=== PATIENT | female | born 1990 | race Caucasian/White ===

== ENCOUNTER 2019-05-07 01:58 | Emergency (ER) | payer OTHER, MEDICAID ==
[~2019-05-07] VITALS: Ht 167.6 cm; Wt 66.2 kg
[~2019-05-07 01:58] MED LIST: CITA10TA11 PO; CLON1TAB11 PO; LAMO25TA6 PO; TRAZ-343 PO
[2019-05-07 02:05] VITALS: BP 110/74
--- NOTE | 2019-05-07 02:10 | NUR ---
PT AMBULATED TO BED #4
[2019-05-07] MEDS ORDERED: NACL 0.9% 1,000 ML IV ONE (02:20)
[2019-05-07] MEDS ORDERED: KETOROLAC 15 MG/ML VIAL IVP ONE (02:20)
[2019-05-07] MEDS ORDERED: ONDANSETRON 4 MG/2 ML VIAL IVP ONE (02:20)
[2019-05-07 02:30] LABS: APPEARANCE,URINE CLEAR (CLEAR); BILIRUBIN,URINE NEGATIVE (NEGATIVE); BLOOD, URINE NEGATIVE (NEGATIVE); COLOR,URINE YELLOW (YELLOW); LEUKOCYTE ESTERASE ,URINE NEGATIVE (NEGATIVE); NITRITE, URINE NEGATIVE (NEGATIVE); PH,URINE 6.5 (5.0-9.0); UGLUCOSE NEGATIVE (NEGATIVE)
[2019-05-07 02:32] LABS: BASOPHILS % (AUTO) 0.8 % (0.0-2.0); EOSINOPHILS # (AUTO) 0.2 K/uL (0-0.4); EOSINOPHILS % (AUTO) 3.6 % (0.0-4.0); HEMATOCRIT 34.2 % (36-48); HEMOGLOBIN 11.3 g/dL (12.0-16.0); LYMPHOCYTES # (AUTO) 1.8 K/uL (2.5-16.5); LYMPHOCYTES % (AUTO) 34.6 % (20.5-51.1); MEAN CORPUSCULAR HEMOGLOBIN 29 pg (27-31); MEAN CORPUSCULAR HGB CONC 33 g/dL (33-37); MEAN CORPUSCULAR VOLUME 87.8 fL (80-94); MONOCYTES # (AUTO) 0.4 K/uL (0.8-1.0); MONOCYTES % (AUTO) 8.2 % (1.7-9.3); NEUTROPHILS # (AUTO) 2.8 K/uL (1.8-7.7); NEUTROPHILS % (AUTO) 52.8 % (42.2-75.2); PLATELET COUNT (AUTO) 254 K/uL (140-450); RED BLOOD CELL COUNT(AUTO) 3.89 MIL/uL (4.20-5.40); RED CELL DISTRIBUTION WIDTH 14.3 % (11.6-13.7); WHITE BLOOD COUNT (AUTO) 5.2 K/uL (4.8-10.8)
--- NOTE | 2019-05-07 02:43 | NUR ---
29 Y/O FEMALE C/O EPIGASTRIC ABD PAIN, N,V,D, NIGHT SWEATS X 2 WEEKS. RATES PAIN 8/10 AND DESCRIBES IT SHARP FEELING. DENIES ANY DYSURIA OR BLOOD IN THE STOOL OR URINE. N,V(3X),D(5-6X) PRESENT. ABD IS SOFT, FLAT, ACTIVE BS, TENDERNESS ON EPIGASTRIC REGION. CHANGE OF APPETITE PRESENT. VSS. STEADY GAIT. A 7 O X4. LUNG OSUNDS CLEAR ALL THORUGHOUT. NO DISTRESS NOTED. PRODUCTIVE COUGH PRESENT. ALLERGIES: AMOXICILLIN, PCN, AND KEFLEX. PMH: ANXIETY, BIPOLAR, BULIMIA (AGE 18), ELECTROSHOCK THERAPY EVERY 2 MONTHS FOR BIPOLAR.
[2019-05-07 02:46] LABS: ALBUMIN 3.8 g/dL (3.4-5.0); ANION GAP 12.6 (8-16); CARBON DIOXIDE 25.4 mmol/L (21-32); CREATININE 0.9 mg/dL (0.6-1.3); TOTAL BILIRUBIN 0.2 mg/dL (0.0-1.0)
[2019-05-07 04:16] VITALS: BP 110/74
== END 2019-05-07 04:16 | disposition home or self-care (01) ==
LOC: MED 01:58
DX: R19.7 Diarrhea, unspecified (principal); G89.29 Other chronic pain; R10.9 Unspecified abdominal pain; R11.2 Nausea with vomiting, unspecified; F41.9 Anxiety disorder, unspecified; Z79.899 Other long term (current) drug therapy; Z88.0 Allergy status to penicillin; Z88.1 Allergy status to other antibiotic agents
CPT/HCPCS: 36415; 80053; 81003; 82150; 83690; 84703; 85025; 87804; 96361; 96374; 96375; 99283; J1885; J2405

== ENCOUNTER 2021-02-05 00:40 | Emergency (ER) | payer OTHER, MEDICAID ==
[~2021-02-05] VITALS: Ht 162.6 cm; Wt 59.0 kg
[2021-02-05 00:56] VITALS: BP 145/92
--- NOTE | 2021-02-05 01:02 | NUR ---
PT TAKEN TO BED 6
--- NOTE | 2021-02-05 01:46 | NUR ---
Dr. Pendleton examining patient.
[2021-02-05] MEDS ORDERED: LORazepam 2 MG/ML VIAL IVP ONE (02:00)
[2021-02-05 02:12] LABS: BASOPHILS % (AUTO) 0.4 % (0.0-2.0); EOSINOPHILS # (AUTO) 0.1 K/uL (0-0.4); EOSINOPHILS % (AUTO) 2.4 % (0.0-4.0); HEMATOCRIT 34.5 % (36-48); HEMOGLOBIN 11.7 g/dL (12.0-16.0); LYMPHOCYTES # (AUTO) 1.4 K/uL (2.5-16.5); LYMPHOCYTES % (AUTO) 28.6 % (20.5-51.1); MEAN CORPUSCULAR HEMOGLOBIN 30 pg (27-31); MEAN CORPUSCULAR HGB CONC 34 g/dL (33-37); MEAN CORPUSCULAR VOLUME 89.5 fL (80-94); MONOCYTES # (AUTO) 0.4 K/uL (0.8-1.0); MONOCYTES % (AUTO) 8.5 % (1.7-9.3); NEUTROPHILS % (AUTO) 60.1 % (42.2-75.2); PLATELET COUNT (AUTO) 244 K/uL (140-450); RED BLOOD CELL COUNT(AUTO) 3.85 MIL/uL (4.20-5.40); WHITE BLOOD COUNT (AUTO) 4.9 K/uL (4.8-10.8)
[2021-02-05 02:33] LABS: ANION GAP 12.9 (8-16); ASPARTATE AMINOTRANSFERASE 18 U/L (15-37); CARBON DIOXIDE 23.3 mmol/L (21-32); CHLORIDE 108 mmol/L (98-107); CREATININE 0.7 mg/dL (0.6-1.3); GFR ARICAN-AMERICAN 128 mL/min (>90); GLUCOSE 107 mg/dL (74-106); POTASSIUM 4.2 mmol/L (3.5-5.1); SODIUM SERUM 140 mmol/L (136-145); TOTAL BILIRUBIN 0.2 mg/dL (0.0-1.0); UREA NITROGEN, BLOOD 18 mg/dL (7-18)
--- NOTE | 2021-02-05 03:08 | NUR ---
PATIENT STABLE FELING BETTER AFTER THE [facility] ADMINISTRATION VITALS SIGNS IN NORMAL LIMITS SR ON MONITOR SLEEPING COMFORTABLE AT THIS TIME //DiCaprio RN
[2021-02-05] MEDS ORDERED: NACL 0.9% 1,000 ML IV ONE (03:10)
[2021-02-05 03:58] VITALS: BP 132/72
== END 2021-02-05 03:45 | disposition home or self-care (01) ==
LOC: MED 00:40
DX: R25.1 Tremor, unspecified (principal); F31.9 Bipolar disorder, unspecified; Z88.0 Allergy status to penicillin; Z88.1 Allergy status to other antibiotic agents
CPT/HCPCS: 36415; 80053; 80178; 84703; 85025; 93005; 96361; 96374; 99284; G0482; J2060; J7030

== ENCOUNTER 2022-04-05 17:33 | Emergency (ER) | payer OTHER, MEDICAID ==
[~2022-04-05] VITALS: Ht 162.6 cm; Wt 61.2 kg
[2022-04-05 17:41] VITALS: BP 130/71
[2022-04-05] MEDS ORDERED: IBUPROFEN 600 MG TAB PO ONE (18:40)
[2022-04-05] MEDS ORDERED: HYDROcodone/APAP 5/325 MG 1 TAB TAB PO ONE (18:40)
[2022-04-05] MEDS ORDERED: ACET-10509 PO (19:06)
[2022-04-05] MEDS ORDERED: IBUP-2213 PO (19:06)
[2022-04-05 19:31] VITALS: BP 128/70
--- NOTE | 2022-04-05 19:31 | NUR ---
Patient discharged with v/s stable. Written and verbal after care instructions given and explained. Patient alert, oriented and verbalized understanding of instructions. Ambulatory with use of crutches. Steady gait. All questions addressed prior to discharge. Patient advised to follow up with PMD. Rx of ibuprofen and tylenol extra strength tab given given. Patient educated on indication of medication including possible reaction and side effects. Opportunity to ask questions provided and answered.
== END 2022-04-05 19:31 | disposition home or self-care (01) ==
LOC: MED 17:33
DX: S93.501A Unspecified sprain of right great toe, initial encounter (principal); Z88.1 Allergy status to other antibiotic agents; Z88.0 Allergy status to penicillin; Z79.899 Other long term (current) drug therapy; W22.8XXA Striking against or struck by other objects, initial encounter; Y93.01 Activity, walking, marching and hiking; Y92.89 Other specified places as the place of occurrence of the external cause; Y99.8 Other external cause status
CPT/HCPCS: 73630; 99283

== ENCOUNTER 2022-10-20 09:49 | Emergency (ER) | payer OTHER, MEDICAID ==
[~2022-10-20] VITALS: Ht 167.6 cm; Wt 70.3 kg
[~2022-10-20 09:49] MED LIST changes: +ACET-10509 PO; +IBUP-2213 PO
[2022-10-20 09:54] VITALS: BP 114/72; PULSE 70; RESP 20; TEMP 98.1; O2SAT 100
--- NOTE | 2022-10-20 10:10 | NUR ---
32YO F PRESENTS ABD PAIN AND EPIGASTRIC, NAUSEA, VOMITING,DIARRHEA, BLOADING, WEAK, TIRED, UNABLE TO HOLD FOOD, WATER OK. PT DENIES CHILLS, FEVER, ESPINAL, SOB, CP. NAD NOTED, SAFETY MAINTAINED. CALL LIGHT WITHIN REACH. HX:IBS, ULCERS ALLERGIES: PENECILLINS, AMOXICILLIN, CEPHALEXIN
[2022-10-20] MEDS ORDERED: FAMOTIDINE 20 MG/2 ML VIAL IVP ONE (10:30)
[2022-10-20] MEDS ORDERED: LOPERAMIDE 2 MG CAP PO ONE (10:30)
[2022-10-20] MEDS ORDERED: ONDANSETRON 4 MG/2 ML VIAL IVP ONE (10:30)
[2022-10-20] MEDS ORDERED: NACL 0.9% 1,000 ML IV SCH (10:30)
[2022-10-20] MEDS ORDERED: DICYCLOMINE 10 MG CAP PO ONE (10:40)
[2022-10-20 10:51] LABS: BASOPHILS % (AUTO) 0.5 % (0.0-2.0); EOSINOPHILS # (AUTO) 0.1 K/uL (0-0.4); EOSINOPHILS % (AUTO) 2.3 % (0.0-4.0); HEMATOCRIT 34.4 % (36-48); HEMOGLOBIN 11.7 g/dL (12.0-16.0); LYMPHOCYTES # (AUTO) 1.2 K/uL (2.5-16.5); LYMPHOCYTES % (AUTO) 28.7 % (20.5-51.1); MEAN CORPUSCULAR HEMOGLOBIN 30 pg (27-31); MEAN CORPUSCULAR HGB CONC 34 g/dL (33-37); MEAN CORPUSCULAR VOLUME 89.6 fL (80-94); MONOCYTES # (AUTO) 0.3 K/uL (0.8-1.0); MONOCYTES % (AUTO) 7.8 % (1.7-9.3); NEUTROPHILS # (AUTO) 2.6 K/uL (1.8-7.7); NEUTROPHILS % (AUTO) 60.7 % (42.2-75.2); PLATELET COUNT (AUTO) 227 K/uL (140-450); RED BLOOD CELL COUNT(AUTO) 3.84 MIL/uL (4.20-5.40); RED CELL DISTRIBUTION WIDTH 12.8 % (11.6-13.7); WHITE BLOOD COUNT (AUTO) 4.3 K/uL (4.8-10.8)
[2022-10-20 11:00] LABS: APPEARANCE,URINE CLEAR (CLEAR); BILIRUBIN,URINE NEGATIVE (NEGATIVE); BLOOD, URINE NEGATIVE (NEGATIVE); COLOR,URINE YELLOW (YELLOW); LEUKOCYTE ESTERASE ,URINE NEGATIVE (NEGATIVE); NITRITE, URINE NEGATIVE (NEGATIVE); PH,URINE 7.5 (5.0-9.0); UGLUCOSE NEGATIVE (NEGATIVE)
--- NOTE | 2022-10-20 11:18 | NUR ---
Patient appears to be resting comfortably in bed. Vital Signs within normal limits. Respirations even and unlabored. CALL LIGHT WITHIN REACH.
--- NOTE | 2022-10-20 12:01 | NUR ---
PT AWAKE COMFORTABLE, STATES SHE IS FEELING BETTER, VS WNL, NAD. CALL LIGHT WITHIN REACH.
[2022-10-20 12:10] VITALS: O2SAT 100
[2022-10-20 13:18] LABS: ALBUMIN 3.8 g/dL (3.4-5.0); ANION GAP 15.4 (8-16); CARBON DIOXIDE 23.5 mmol/L (21-32); CREATININE 0.5 mg/dL (0.6-1.3); POTASSIUM 3.9 mmol/L (3.5-5.1); TOTAL BILIRUBIN 0.3 mg/dL (0.0-1.0)
[2022-10-20] MEDS ORDERED: OMEP40EC24 PO (13:26)
[2022-10-20] MEDS ORDERED: SUCR1TAB35 PO (13:26)
[2022-10-20] MEDS ORDERED: BEN10 PO (13:26)
[2022-10-20 13:32] VITALS: BP 132/83; PULSE 76; RESP 15; TEMP 98.5; O2SAT 99
--- NOTE | 2022-10-20 13:32 | NUR ---
Patient discharged with v/s stable. Written and verbal after care instructions given and explained. Patient alert, oriented and verbalized understanding of instructions. Ambulatory with steady gait. All questions addressed prior to discharge. ID band removed. Patient advised to follow up with PMD. Rx of KEFLEX given Opportunity to ask questions provided and answered.
--- NOTE | 2022-10-20 13:34 | NUR ---
The patient's care was reviewed and supervised by Michelle Del Angel, RN, RN.
== END 2022-10-20 13:32 | disposition home or self-care (01) ==
LOC: MED 09:49
DX: R10.9 Unspecified abdominal pain (principal); R19.7 Diarrhea, unspecified; R11.10 Vomiting, unspecified; K62.89 Other specified diseases of anus and rectum; K58.9 Irritable bowel syndrome, unspecified; Z88.0 Allergy status to penicillin; Z88.1 Allergy status to other antibiotic agents; Z79.899 Other long term (current) drug therapy
CPT/HCPCS: 36415; 80053; 81003; 81025; 83690; 85025; 96361; 96374; 96375; 99284; J2405; J3490; J7030